=== PATIENT | female | born 1970 | race African-American/Black ===

== ENCOUNTER 2017-02-06 12:13 | Inpatient (IN) | payer BC ==
[~2017-02-06] VITALS: Ht 160 cm; Wt 86.5 kg
[2017-02-06 12:19] VITALS: Ht 160 cm; Wt 86.5 kg
[2017-02-06] MEDS ORDERED: SOD CHLORIDE 0.9% 500 ML IV STA (12:29)
[2017-02-06 12:58] LABS: ADD SCAN DIFF NO
[2017-02-06 13:04] LABS: ABNORMAL IP MESSAGE 1; HEMATOCRIT 25.7 % (37.0-47.0); MEAN CORPUSCULAR HEMOGLOBIN 16.6 pg (29.0-33.0); MEAN CORPUSCULAR HGB CONC 25.7 g/dl (32.0-37.0); MEAN CORPUSCULAR VOLUME 64.6 fl (82.0-101.0); MEAN PLATELET VOLUME 10.6 fl (7.4-10.4); PLATELET COUNT 334 10^3/UL (140-415); RED BLOOD COUNT 3.98 10^6/ul (4.20-5.40); RED CELL DISTRIBUTION WIDTH 22.5 % (11.5-14.5); RETICULOCYTE COUNT % 1.7 % (0.5-1.5); WHITE BLOOD COUNT 9.8 10^3/ul (4.8-10.8)
[2017-02-06 13:11] LABS: HEMOGLOBIN 6.6 g/dl (12.0-16.0)
[2017-02-06 13:17] LABS: POTASSIUM 3.7 mmol/L (3.5-5.1)
[2017-02-06 13:18] LABS: IRON 18 ug/dl (35-150)
[2017-02-06 13:19] LABS: CREATININE 0.89 mg/dl (0.44-1.00)
[2017-02-06 13:20] LABS: CALCIUM 9.3 mg/dl (8.4-10.2)
[2017-02-06 13:28] LABS: TOTAL IRON BINDING CAPACITY 435 ug/dl (241-421)
[2017-02-06] MEDS ORDERED: HYD25 PO (13:46)
[2017-02-06] MEDS ORDERED: CARV6.2579 PO (13:46)
[2017-02-06] MEDS ORDERED: VALS160T20 PO (13:47)
[2017-02-06 14:04] LABS: EOSINOPHILS # 0.1 10^3/ul (0.0-0.5); LYMPHOCYTES # 1.4 10^3/ul (0.8-2.9); MONOCYTE # 0.4 10^3/ul (0.3-0.9); NEUTROPHIL # 7.9 10^3/ul (1.6-7.5)
--- NOTE | 2017-02-06 14:15 | ERA ---
ER Documentation Chief Complaint Date/Time DATE: 02/06/17 TIME: 14:13 Chief Complaint was told to come to er due low hgb, asymtomatic HPI 46-year-old female who was told to come to the ER secondary to low hemoglobin. Patient is asymptomatic denies any palpitations lightheadedness chest pain or shortness of breath on exertion. Denies any other current complaints. Patient does have heavy periods. ROS All systems reviewed and are negative except as per history of present illness. Medications Home Meds Reported Medications Valsartan* (Diovan*) 160 Mg Tablet, 160 MG PO DAILY, TAB 02/06/17 Hydrochlorothiazide* (Hydrochlorothiazide*) 25 Mg Tab, 25 MG PO DAILY, #30 TAB 02/06/17 Carvedilol* (Carvedilol*) 6.25 Mg Tablet, 6.25 MG PO BID, #60 TAB 02/06/17 Allergies Allergies: Coded Allergies: No Known Allergy (Unverified , 02/06/17) Physical Exam Vitals Vital Signs Date Time Temp Pulse Resp B/P Pulse Ox O2 Delivery O2 Flow Rate FiO2 02/06/17 12:19 98.2 77 18 163/80 99 Physical Exam Const: [] Head: Atraumatic Eyes: Normal Conjunctiva ENT: Normal External Ears, Nose and Mouth. Neck: Full range of motion..~ No meningismus. Resp: Clear to auscultation bilaterally Cardio: Regular rate and rhythm, no murmurs Abd: Soft, non tender, non distended. Normal bowel sounds Skin: No petechiae or rashes Back: No midline or flank tenderness Ext: No cyanosis, or edema Neur: Awake and alert Psych: Normal Mood and Affect Result Diagram: 02/06/17 1235 02/06/17 1235 Results 24 hrs Laboratory Tests Test 02/06/17 12:35 White Blood Count 9.810^3/ul Red Blood Count 3.9810^6/ul Hemoglobin 6.6g/dl Hematocrit 25.7% Mean Corpuscular Volume 64.6fl Mean Corpuscular Hemoglobin 16.6pg Mean Corpuscular Hemoglobin Concent 25.7g/dl Red Cell Distribution Width 22.5% Platelet Count 74311^3/UL Mean Platelet Volume 10.6fl Neutrophils % 81.0% Lymphocytes % 14.0% Monocytes % 4.0% Eosinophils % 1.0% Neutrophils # 7.910^3/ul Lymphocytes # 1.410^3/ul Monocytes # 0.410^3/ul Eosinophils # 0.110^3/ul Absolute Reticulocyte Count 0.069X10^6 Percent Reticulocyte Count 1.7% Sodium Level 143mmol/L Potassium Level 3.7mmol/L Chloride Level 111mmol/L Carbon Dioxide Level 27mmol/L Anion Gap 9 Blood Urea Nitrogen 9mg/dl Creatinine 0.89mg/dl Glucose Level 93mg/dl Calcium Level 9.3mg/dl Iron Level 18ug/dl Total Iron Binding Capacity 435ug/dl Percent Iron Saturation 4% SAT Current Medications Medications (Trade) Dose Ordered Sig/Julio Route PRN Reason Start Time Stop Time Status Last Admin Dose Admin Sodium Chloride (NS) 500 ml @ 500 mls/hr Q1H STAT IV 02/06/17 12:29 02/06/17 13:28 DC 02/06/17 12:51 Procedures/MDM Medical decision-makin-year-old female with severe anemia. Admitted for transfusion. Hospitalist made aware. Departure Diagnosis: Primary Impression: Anemia Qualified Code: D50.9 - Iron deficiency anemia, unspecified iron deficiency anemia type Condition: Serious RACHEL MC February 06, 2017 14:15
[2017-02-06 14:20] VITALS: BP 177/77; RESP 18
--- NOTE | 2017-02-06 16:26 | HP ---
Date/Time of Note Date/Time of Note DATE: 02/06/17 TIME: 16:17 Assessment/Plan VTE Prophylaxis VTE Prophylaxis Intervention: SCD's Assessment/Plan Assessment/Plan 46 yo F with pmhx htn admitted for incidentally discovered significant microcytic anemia. Etio unclear. Labs with evidence of ELPIDIO as well. #Iron deficiency anemia -GI consult for EGD, possible CScope -defer casino supervisor consult as pt does not report heavy periods/vaginal bleeding -hgb electropheresis to eval for thalassemia -hold off on starting iron pending GI eval (do not want to confound testing) -check FOBT -1 unit pRBCs ordered by the ER. Will recheck CBC post transfusion -check TSH though less likely thyroid mediated process #HTN: cont home meds FEN: general diet till mn then NPO for possible GI eval HPI/ROS Admit Date/Time Admit Date/Time February 06, 2017 at 13:17 Hx of Present Illness 46 yo F with pmhx HTN presents after unexpected finding of anemia on "routine labs" with PCP. Pt seen by PCP 4 days ago to establish care/[facility] for HTN. Labs returned today, notable for hgb in the 6s and pt was advised to present to the ED for further eval. Pt denies any dark stool, blood in stools, hematemesis, easy bruising, or heavy periods. Pt denies fatigue but her daughter told her she seemed more tired than usual lately. Pt denies recent NSAID use. Takes APAP PRN headaches. ROS 10 point ROS negative except as per HPI no fevers/chills no visual changes no cp/SOB no weight changes no night sweats no rashes no nausea/vomitting no constipation or diarrhea no numbness/tingling/weakness PMH/Family/Social Past Medical History Medical History: hypertension Past Surgical History h/o C Section Family History Significant Family History: no pertinent family hx (no family hx bleeding disorder) Social History lives with her 2 daughters, in school for sociology Smoking Status: Former smoker Exam/Review of Systems Vital Signs Vitals Vital Signs Date Time Temp Pulse Resp B/P Pulse Ox O2 Delivery O2 Flow Rate FiO2 02/06/17 14:20 97.5 18 177/77 100 Room Air 02/06/17 13:42 72 Exam Exam nad, pleasant EOMI MMM rrr no mrg lungs clear abd soft no le edema no rashes responds to questions appropriately moves exts freely Labs Result Diagram: 02/06/17 1235 02/06/17 1235 Medications Medications Current Medications Carvedilol (Coreg) 6.25 mg BID PO ; Start 02/06/17 at 21:00; Status UNV Hydrochlorothiazide (Hydrochlorothiazide) 25 mg DAILY PO ; Start 02/07/17 at 09: 00; Status UNV Valsartan (Diovan) 160 mg DAILY PO ; Start 02/07/17 at 09:00; Status UNV RICHARD MACK MD February 06, 2017 16:26
[2017-02-06] MEDS: ACETAMINOPHEN 325 MG TAB PO PRN (16:58)
--- NOTE | 2017-02-06 17:26 | CONS ---
Date/Time of Note Date/Time of Note DATE: 02/06/17 TIME: 17:19 Assessment/Plan Assessment/Plan Additional Assessment/Plan Assessment * Anemia UGI bleed vs Lower GI bleed vs iron deficiency Plan * Transfuse blood as ordered * EGD risks and benefit explained to the patient ,but will thik it over * Will placed her on regular diet tonight but NPO post breakfast Consultation Date/Type/Reason Admit Date/Time February 06, 2017 at 13:17 Date of Consultation: February 06, 2017 Type of Consultation: Gastroenterology Reason for Consultation anemia Referring Provider: RICHARD MACK MD Hx of Present Illness 46 year old female sent by her PCP because of hemoglobin 6.6.Patient denies any chest pain,body malaise ,shortness of breath ,hematemesis,nor hematochezia.Patient denies any pertinent past medical history.Hemoglobin at er is 6.6 and presently receiving blood transfusion Constitutional: improved, no complaints Eyes: no complaints ENT: no complaints Respiratory: no complaints Cardiovascular: no complaints Gastrointestinal: no complaints Genitourinary: no complaints Musculoskeletal: no complaints Skin: no complaints Neurologic: no complaints Endocrine: no complaints Lymphatic: no complaints Psychological: nl mood/affect, no complaints Immunologic: no complaints Past Medical History Medical History: hypertension Past Surgical History Past Surgical Hx: no surgical history Family History Significant Family History: no pertinent family hx Social History Smoking Status: Former smoker Exam/Review of Systems Vital Signs Vitals Vital Signs Date Time Temp Pulse Resp B/P Pulse Ox O2 Delivery O2 Flow Rate FiO2 02/06/17 14:20 97.5 18 177/77 100 Room Air 02/06/17 13:42 72 Exam Constitutional: alert, oriented, well developed Psych: nl mood/affect, no complaints Head: atraumatic, normocephalic Eyes: EOMI, PERRL, nl conjunctiva, nl lids, nl sclera ENMT: nl external ears & nose, nl lips & teeth, nl nasal mucosa & septum Neck: non-tender, supple Respiratory: clear to auscultation, normal air movement Cardiovascular: nl pulses, regular rate and rhythm Gastrointestinal: nl liver, spleen, non-tender, soft Musculoskeletal: nl extremities to inspection, nl gait and stance Extremities: normal pulses Neurological: FACULTY SUPPORT COORDINATOR II-XII intact, nl mental status, nl speech, nl strength Skin: nl turgor, No rash or lesions Lymph: nl lymph nodes Results Result Diagram: 02/06/17 1235 02/06/17 1235 Results 24 hrs Laboratory Tests Test 02/06/17 12:35 White Blood Count 9.8 Red Blood Count 3.98 L Hemoglobin 6.6 *L Hematocrit 25.7 L Mean Corpuscular Volume 64.6 L Mean Corpuscular Hemoglobin 16.6 L Mean Corpuscular Hemoglobin Concent 25.7 L Red Cell Distribution Width 22.5 H Platelet Count 334 Mean Platelet Volume 10.6 H Neutrophils % 81.0 H Lymphocytes % 14.0 L Monocytes % 4.0 Eosinophils % 1.0 Neutrophils # 7.9 H Lymphocytes # 1.4 Monocytes # 0.4 Eosinophils # 0.1 Absolute Reticulocyte Count 0.069 Percent Reticulocyte Count 1.7 H Sodium Level 143 Potassium Level 3.7 Chloride Level 111 H Carbon Dioxide Level 27 Anion Gap 9 Blood Urea Nitrogen 9 Creatinine 0.89 Glucose Level 93 Calcium Level 9.3 Iron Level 18 L Total Iron Binding Capacity 435 H Percent Iron Saturation 4 L Thyroid Stimulating Hormone (TSH) 2.470 Medications Medications Current Medications Carvedilol (Coreg) 6.25 mg BID PO ; Start 02/06/17 at 21:00 Hydrochlorothiazide (Hydrochlorothiazide) 25 mg DAILY PO ; Start 02/07/17 at 09: 00 Valsartan (Diovan) 160 mg DAILY PO ; Start 02/07/17 at 09:00 Acetaminophen (Tylenol Tab) 325 mg Q6H PRN PO PAIN AND OR ELEVATED TEMP Last administered on 02/06/17t 16:58; Admin Dose 325 MG; Start 02/06/17 at 17:00 ROBERTO VORA MD February 06, 2017 17:25
[2017-02-06 20:45] VITALS: BP 164/86; PULSE 66
[2017-02-06 21:00] VITALS: BP 163/84; RESP 18
[2017-02-06 21:40] VITALS: BP 151/82; PULSE 68
[2017-02-07] MEDS: ACETAMINOPHEN 325 MG TAB PO PRN ×2 (04:21→20:50)
[2017-02-07 06:48] LABS: ADD SCAN DIFF NO
[2017-02-07 06:51] LABS: ABNORMAL IP MESSAGE 1; BASOPHILS % 0.5 % (0.0-2.0); EOSINOPHILS # 0.4 10^3/ul (0.0-0.5); EOSINOPHILS % 4.5 % (0.0-7.0); HEMATOCRIT 27.3 % (37.0-47.0); HEMOGLOBIN 7.6 g/dl (12.0-16.0); LYMPHOCYTES # 1.7 10^3/ul (0.8-2.9); LYMPHOCYTES % 21.6 % (15.0-51.0); MEAN CORPUSCULAR HEMOGLOBIN 18.6 pg (29.0-33.0); MEAN CORPUSCULAR HGB CONC 27.8 g/dl (32.0-37.0); MEAN CORPUSCULAR VOLUME 66.7 fl (82.0-101.0); MONOCYTE # 0.6 10^3/ul (0.3-0.9); MONOCYTES % 7.9 % (0.0-11.0); NEUTROPHILS % 65.1 % (39.0-77.0); PLATELET COUNT 323 10^3/UL (140-415); RED BLOOD COUNT 4.09 10^6/ul (4.20-5.40); RED CELL DISTRIBUTION WIDTH 24.7 % (11.5-14.5); WHITE BLOOD COUNT 7.7 10^3/ul (4.8-10.8)
[2017-02-07 07:20] VITALS: BP 134/76; RESP 18
[2017-02-07] MEDS: HYDROCHLOROTHIAZIDE 25 MG TAB PO SCH (08:12)
[2017-02-07] MEDS: VALSARTAN 160 MG TAB PO SCH (08:12)
--- NOTE | 2017-02-07 13:56 | PN ---
Date/Time of Note Date/Time of Note DATE: 02/07/17 TIME: 13:54 Assessment/Plan VTE Prophylaxis VTE Prophylaxis Intervention: SCD's Lines/Catheters IV [facility] Saline Lock Urinary Cath still in place: No Assessment/Plan Assessment/Plan 46 yo F admitted for incidental finding of ELPIDIO. Etio unclear PLAN EGD tomorrow, RN to let GI know pt amenable CBC in AM (appropriate bump after 1 unit today) hgb electrophesis in process defer starting TID iron pending endoscopic eval svitlana SCDs NPO at mn Subjective 24 Hr Interval Summary Free Text/Dictation pt ambivalent about EGD though is now amenable Exam/Review of Systems Vital Signs Vitals Vital Signs Date Time Temp Pulse Resp B/P Pulse Ox O2 Delivery O2 Flow Rate FiO2 02/07/17 07:20 98.2 62 18 134/76 100 02/06/17 14:20 Room Air Intake and Output 02/06/17 02/06/17 02/07/17 15:00 23:00 07:00 Intake Total 750 ml 500 ml Balance 750 ml 500 ml Exam nad resp nonlabored responds to questions approriately no le edema no rashes Results Result Diagram: 02/07/17 0510 02/06/17 1235 Results 24 hrs Laboratory Tests Test 02/07/17 05:10 02/07/17 06:24 White Blood Count 7.7 # Red Blood Count 4.09 L Hemoglobin 7.6 L Hematocrit 27.3 L Mean Corpuscular Volume 66.7 L Mean Corpuscular Hemoglobin 18.6 L Mean Corpuscular Hemoglobin Concent 27.8 L Red Cell Distribution Width 24.7 H Platelet Count 323 Mean Platelet Volume Neutrophils % 65.1 Lymphocytes % 21.6 Monocytes % 7.9 Eosinophils % 4.5 Basophils % 0.5 Nucleated Red Blood Cells % 0.0 Neutrophils # 5.0 Lymphocytes # 1.7 Monocytes # 0.6 Eosinophils # 0.4 Basophils # 0.0 Nucleated Red Blood Cells # 0.0 Lab Scanned Report BLOOD TRANSFUSION Medications Medications Current Medications Carvedilol (Coreg) 6.25 mg BID PO Last administered on 02/07/17 08:12; Admin Dose 6.25 MG; Start 02/06/17 at 21:00 Hydrochlorothiazide (Hydrochlorothiazide) 25 mg DAILY PO Last administered on 08:12; Admin Dose 25 MG; Start 02/07/17 at 09:00 Valsartan (Diovan) 160 mg DAILY PO Last administered on 02/07/17 08:12; Admin Dose 160 MG; Start 02/07/17 at 09:00 Acetaminophen (Tylenol Tab) 325 mg Q6H PRN PO PAIN AND OR ELEVATED TEMP Last administered on 02/07/17 04:21; Admin Dose 325 MG; Start 02/06/17 at 17:00 RICHARD MACK MD February 07, 2017 13:56
--- NOTE | 2017-02-07 14:22 | PN ---
Date/Time of Note Date/Time of Note DATE: 02/07/17 TIME: 14:19 Assessment/Plan VTE Prophylaxis VTE Prophylaxis Intervention: ambulation, SCD's Lines/Catheters IV [facility] Saline Lock Urinary Cath still in place: No Assessment/Plan Assessment/Plan Assessment * Anemia UGI bleed vs Lower GI bleed vs iron deficiency Plan * Transfuse blood as ordered * EGD risks and benefit explained to the patient ,but will think it over Subjective 24 Hr Interval Summary Free Text/Dictation * Course reviewed with RN * Patient seen and examined * Initially refused endoscopy later agreed will try to reschedule * Anemia controlled Exam/Review of Systems Vital Signs Vitals Vital Signs Date Time Temp Pulse Resp B/P Pulse Ox O2 Delivery O2 Flow Rate FiO2 02/07/17 07:20 98.2 62 18 134/76 100 02/06/17 14:20 Room Air Intake and Output 02/06/17 02/06/17 02/07/17 15:00 23:00 07:00 Intake Total 750 ml 500 ml Balance 750 ml 500 ml Exam Constitutional: alert Neck: non-tender, supple Respiratory: clear to auscultation, normal air movement Cardiovascular: nl pulses, regular rate and rhythm Gastrointestinal: non-tender, soft Musculoskeletal: nl extremities to inspection Results Result Diagram: 02/07/17 0510 02/06/17 1235 Results 24 hrs Laboratory Tests Test 02/07/17 05:10 02/07/17 06:24 White Blood Count 7.7 # Red Blood Count 4.09 L Hemoglobin 7.6 L Hematocrit 27.3 L Mean Corpuscular Volume 66.7 L Mean Corpuscular Hemoglobin 18.6 L Mean Corpuscular Hemoglobin Concent 27.8 L Red Cell Distribution Width 24.7 H Platelet Count 323 Mean Platelet Volume Neutrophils % 65.1 Lymphocytes % 21.6 Monocytes % 7.9 Eosinophils % 4.5 Basophils % 0.5 Nucleated Red Blood Cells % 0.0 Neutrophils # 5.0 Lymphocytes # 1.7 Monocytes # 0.6 Eosinophils # 0.4 Basophils # 0.0 Nucleated Red Blood Cells # 0.0 Lab Scanned Report BLOOD TRANSFUSION Medications Medications Current Medications Carvedilol (Coreg) 6.25 mg BID PO Last administered on 02/07/17t 08:12; Admin Dose 6.25 MG; Start 02/06/17 at 21:00 Hydrochlorothiazide (Hydrochlorothiazide) 25 mg DAILY PO Last administered on 08:12; Admin Dose 25 MG; Start 02/07/17 at 09:00 Valsartan (Diovan) 160 mg DAILY PO Last administered on 02/07/17 08:12; Admin Dose 160 MG; Start 02/07/17 at 09:00 Acetaminophen (Tylenol Tab) 325 mg Q6H PRN PO PAIN AND OR ELEVATED TEMP Last administered on 02/07/17 04:21; Admin Dose 325 MG; Start 02/06/17 at 17:00 ROBERTO VORA MD February 07, 2017 14:22
[2017-02-07 20:00] VITALS: BP 138/80; RESP 19
[2017-02-08] VITALS (14 sets, daily range): BP systolic 119–173; BP diastolic 62–95; PULSE 59–81; RESP 17–30
[2017-02-08 01:59] LABS: HEMOGLOBIN 6.7 g/dL (11.7-15.5); MCH 16.5 pg (27.0-33.0); MCV 66.5 fL (80.0-100.0); RED BLOOD CELL COUNT 4.06 Million/uL (3.80-5.10)
[2017-02-08 06:15] LABS: ADD SCAN DIFF NO
[2017-02-08 06:28] LABS: ABNORMAL IP MESSAGE 1; BASOPHILS % 0.6 % (0.0-2.0); EOSINOPHILS # 0.3 10^3/ul (0.0-0.5); EOSINOPHILS % 4.8 % (0.0-7.0); HEMATOCRIT 27.4 % (37.0-47.0); HEMOGLOBIN 7.7 g/dl (12.0-16.0); LYMPHOCYTES # 1.5 10^3/ul (0.8-2.9); LYMPHOCYTES % 21.1 % (15.0-51.0); MEAN CORPUSCULAR HEMOGLOBIN 19.1 pg (29.0-33.0); MEAN CORPUSCULAR HGB CONC 28.1 g/dl (32.0-37.0); MEAN CORPUSCULAR VOLUME 67.8 fl (82.0-101.0); MEAN PLATELET VOLUME 10.5 fl (7.4-10.4); MONOCYTE # 0.6 10^3/ul (0.3-0.9); MONOCYTES % 7.9 % (0.0-11.0); NEUTROPHIL # 4.5 10^3/ul (1.6-7.5); NEUTROPHILS % 65.3 % (39.0-77.0); PLATELET COUNT 344 10^3/UL (140-415); RED BLOOD COUNT 4.04 10^6/ul (4.20-5.40); RED CELL DISTRIBUTION WIDTH 24.8 % (11.5-14.5); WHITE BLOOD COUNT 6.9 10^3/ul (4.8-10.8)
[2017-02-08] MEDS: VALSARTAN 160 MG TAB PO SCH ×2 (09:00→15:35)
[2017-02-08] MEDS: HYDROCHLOROTHIAZIDE 25 MG TAB PO SCH ×2 (09:00→15:35)
[2017-02-08] MEDS ORDERED: SOD CHLORIDE 0.9% 250 ML IV* ONE (11:59)
[2017-02-08] MEDS ORDERED: EPHEDrine SULFATE 50 MG/5 ML SYG IV PRN (13:30)
[2017-02-08] MEDS ORDERED: hydrALAzine 20 MG INJ IV PRN (13:30)
[2017-02-08] MEDS ORDERED: OXYCODONE/ACETAMINOPHEN (5/325) TAB PO PRN ×2 (13:30)
[2017-02-08] MEDS ORDERED: ONDANSETRON 4 MG INJ IV PRN (13:30)
[2017-02-08] MEDS ORDERED: morphine (1 MG/ML) 10ML SYRINGE IV PRN ×3 (13:30)
[2017-02-08] MEDS ORDERED: METOCLOPRAMIDE 10 MG INJ IV PRN (13:30)
[2017-02-08] MEDS ORDERED: LABETALOL HCL 20MG INJ IV PRN (13:30)
[2017-02-08] MEDS ORDERED: FENTAnyl 50 MCG/ML VIAL ONE (14:02)
[2017-02-08] MEDS ORDERED: LIDOCAINE 2% (SDV) 5 ML INJ ONE (14:02)
[2017-02-08] MEDS ORDERED: PROPOFOL 20 ML ONE (14:02)
--- NOTE | 2017-02-08 16:30 | PN ---
Date/Time of Note Date/Time of Note DATE: 02/08/17 TIME: 16:26 Assessment/Plan VTE Prophylaxis VTE Prophylaxis Intervention: SCD's Lines/Catheters IV Catheter Type (from Nrs): Peripheral IV Urinary Cath still in place: No Assessment/Plan Assessment/Plan 1. Severe sympatomatic anemia 2. severe Iron deficienyc anemia rule out Upper GI bleeding vs Lower GI bleeding 3. Hypertension Plan: S/p PRBC transfusion yesterday, still Hb 7.7- will give another 1 unit PRBC transfusion today Plan for EGD today SCD for DVT prophylaxis Protonix for GI prophylaxis Subjective 24 Hr Interval Summary Free Text/Dictation s/p PRBC Hb 7.7, Bp stable, afebrile Exam/Review of Systems Vital Signs Vitals Vital Signs Date Time Temp Pulse Resp B/P Pulse Ox O2 Delivery O2 Flow Rate FiO2 02/08/17 14:49 70 30 135/74 99 Room Air 02/08/17 14:26 98.0 Intake and Output 02/07/17 02/07/17 02/08/17 15:00 23:00 07:00 Intake Total 800 ml 350 ml Balance 800 ml 350 ml Exam Constitutional: alert, oriented, well developed Respiratory: clear to auscultation, normal air movement Cardiovascular: nl pulses, regular rate and rhythm Gastrointestinal: nl liver, spleen, non-tender, soft Musculoskeletal: nl extremities to inspection, nl gait and stance Extremities: normal pulses Neurological: KINDERGARTEN INSTRUCTIONAL ASSISTANT II-XII intact, nl mental status, nl speech, nl strength Results Result Diagram: 02/08/17 0450 02/06/17 1235 Results 24 hrs Laboratory Tests Test 02/08/17 04:50 White Blood Count 6.9 Red Blood Count 4.04 L Hemoglobin 7.7 L Hematocrit 27.4 L Mean Corpuscular Volume 67.8 L Mean Corpuscular Hemoglobin 19.1 L Mean Corpuscular Hemoglobin Concent 28.1 L Red Cell Distribution Width 24.8 H Platelet Count 344 Mean Platelet Volume 10.5 H Neutrophils % 65.3 Lymphocytes % 21.1 Monocytes % 7.9 Eosinophils % 4.8 Basophils % 0.6 Nucleated Red Blood Cells % 0.0 Neutrophils # 4.5 Lymphocytes # 1.5 Monocytes # 0.6 Eosinophils # 0.3 Basophils # 0.0 Nucleated Red Blood Cells # 0.0 Medications Medications Current Medications Carvedilol (Coreg) 6.25 mg BID PO Last administered on 02/08/17 09:53; Admin Dose 6.25 MG; Start 02/06/17 at 21:00 Hydrochlorothiazide (Hydrochlorothiazide) 25 mg DAILY PO Last administered on 15:35; Admin Dose 25 MG; Start 02/07/17 at 09:00 Valsartan (Diovan) 160 mg DAILY PO Last administered on 02/08/17 15:35; Admin Dose 160 MG; Start 02/07/17 at 09:00 Acetaminophen (Tylenol Tab) 325 mg Q6H PRN PO PAIN AND OR ELEVATED TEMP Last administered on 02/07/17 20:50; Admin Dose 325 MG; Start 02/06/17 at 17:00 KIT MCKEON MD Feb 08, 2017 16:30
[2017-02-08] MEDS: ACETAMINOPHEN 325 MG TAB PO PRN (19:06)
[2017-02-08] MEDS ORDERED: AL HYDROX/MG HYDROX/SIMETH 30 ML CUP PO ONE (21:00)
[2017-02-08] MEDS: PANTOPRAZOLE (EC) 40 MG TAB PO SCH (21:13)
[2017-02-09 00:15] VITALS: BP 120/64; PULSE 64; RESP 18
[2017-02-09 01:15] VITALS: BP 110/62; PULSE 60; RESP 18
[2017-02-09] MEDS: PANTOPRAZOLE (EC) 40 MG TAB PO SCH (05:47)
[2017-02-09 07:30] LABS: ADD SCAN DIFF NO
[2017-02-09 07:36] LABS: ABNORMAL IP MESSAGE 1; BASOPHIL # 0.1 10^3/ul (0.0-0.1); BASOPHILS % 0.7 % (0.0-2.0); EOSINOPHILS # 0.3 10^3/ul (0.0-0.5); EOSINOPHILS % 3.9 % (0.0-7.0); HEMATOCRIT 31.6 % (37.0-47.0); HEMOGLOBIN 8.9 g/dl (12.0-16.0); LYMPHOCYTES # 1.5 10^3/ul (0.8-2.9); LYMPHOCYTES % 19.9 % (15.0-51.0); MEAN CORPUSCULAR HEMOGLOBIN 19.9 pg (29.0-33.0); MEAN CORPUSCULAR HGB CONC 28.2 g/dl (32.0-37.0); MEAN CORPUSCULAR VOLUME 70.5 fl (82.0-101.0); MEAN PLATELET VOLUME 10.7 fl (7.4-10.4); MONOCYTE # 0.6 10^3/ul (0.3-0.9); MONOCYTES % 7.6 % (0.0-11.0); NEUTROPHIL # 5.1 10^3/ul (1.6-7.5); NEUTROPHILS % 67.6 % (39.0-77.0); PLATELET COUNT 381 10^3/UL (140-415); RED BLOOD COUNT 4.48 10^6/ul (4.20-5.40); RED CELL DISTRIBUTION WIDTH 26.3 % (11.5-14.5); WHITE BLOOD COUNT 7.5 10^3/ul (4.8-10.8)
[2017-02-09 07:45] VITALS: BP 134/63; RESP 18
[2017-02-09 08:09] LABS: ALBUMIN 4.4 g/dl (3.3-4.9); ALBUMIN/GLOBULIN RATIO 1.22; BILIRUBIN,INDIRECT 0.2 mg/dl (0-1.1); BILIRUBIN,TOTAL 0.2 mg/dl (0.2-1.3); CALCIUM 9.3 mg/dl (8.4-10.2); CREATININE 0.85 mg/dl (0.44-1.00); POTASSIUM 4.1 mmol/L (3.5-5.1)
[2017-02-09] MEDS: HYDROCHLOROTHIAZIDE 25 MG TAB PO SCH (08:50)
[2017-02-09 10:20] LABS: INR 0.99; PARTIAL THROMBOPLASTIN TIME 26.9 Sec (25.0-35.0); PROTIME 13.1 Sec (12.2-14.2)
--- NOTE | 2017-02-09 11:26 | PDOCDIS ---
Discharge Instructions CONDITION Patient Condition: Good HOME CARE INSTRUCTIONS: Special Diet: regular ACTIVITY: Activity Restrictions: Slowly Increase Activity Rest between Activity Avoid heavy lifting Avoid Heavy Housework FOLLOW UP/APPOINTMENTS Appointments follow up with her own PMD through HMO Insurance in 1-2 week. follow up with GI as outpatietn in 1-2 week( she will need a referrral from her pMD to see GI physician as outpatient) KIT MCKEON MD Feb 09, 2017 11:26
[2017-02-09] MEDS ORDERED: DOCU-144 PO (11:27)
[2017-02-09] MEDS ORDERED: OMEP20CA16 PO (11:27)
[2017-02-09] MEDS ORDERED: FER325 PO (11:27)
[2017-02-09] MEDS: VALSARTAN 160 MG TAB PO SCH (12:34)
[2017-02-09 13:31] LABS: HEMOGLOBIN A 98.3 % (>96.0); HEMOGLOBIN A2 (QUANT) 1.7 % (1.8-3.5); HEMOGLOBIN F <1.0 % (<2.0)
--- NOTE | 2017-02-11 23:28 | DS ---
DATE OF ADMISSION: 02/06/2017 DATE OF DISCHARGE: 02/09/2017 FINAL DISCHARGE DIAGNOSES: 1. Severe symptomatic anemia, status post packed red blood cells transfusion. 2. Severe iron deficiency anemia, likely secondary to gastrointestinal bleeding. 3. Hypertension. CONSULTATIONS DONE DURING THIS HOSPITALIZATION: GI consult, Dr. Wells. PROCEDURES PERFORMED DURING THIS HOSPITALIZATION: The patient received 2 units of PRBC transfusion. HOSPITAL COURSE: This is a 46-year-old female who has a past medical history of hypertension, C-sec tion who presented with generalized weakness, fatigue, shortness of breath. She was admitted for se serenity symptomatic anemia. The patient had a severe iron deficiency anemia for which she had a GI con sultation done by Dr. Wells. The patient underwent EGD and had a biopsy done of her stomach, which shows ____ mucosa showing no significant histopathological abnormality. The patient received 2 uni ts of PRBC transfusion while being in the hospital. She slowly gradually improved back to her sara l baseline status. She was started on a p.o. diet. She was tolerating the diet very well. After g etting GI clearance, she is being discharged to home. DISPOSITION: To home. DISCHARGE CONDITION: Stable and improved compared to admission. DISCHARGE ACTIVITIES: As tolerated, slowly resume to the normal baseline activity. DISCHARGE DIET: Low fat, low sodium diet. DISCHARGE MEDICATIONS: As per medical reconciliation. 1. She is given prescriptions of Colace 100 mg p.o. b.i.d. p.r.n. constipation. 2. Ferrous sulfate 325 mg p.o. b.i.d. 3. Omeprazole 20 mg p.o. daily. DISCHARGE FOLLOWUP AND INSTRUCTIONS: 1. The patient is to follow up with her own primary care doctor through her HMO insurance 1 to 2 we eks after discharge. 2. The patient is to follow with GI physician, Dr. Wells, as outpatient in 1 to 2 weeks after disc harge. She will need a referral from her primary care doctor to see a GI physician as outpatient. Dictated By: KIT MCKEON MD, KP/NTS Conf#: [id number] DID#: [id number] CC: STERLING MULLEN MD;*EndCC*
== END 2017-02-09 13:50 | disposition home or self-care (01) | DRG 379 ==
LOC: E/R 12:13 → PP2 13:17
PROVIDERS: ADMIT Family Medicine; ATTEND Family Medicine
PROC: 30233N1 Transfusion of Nonautologous Red Blood Cells into Peripheral Vein, Percutaneous Approach (ICD-10-PCS; 2017-02-06)
PROC: 30233N1 Transfusion of Nonautologous Red Blood Cells into Peripheral Vein, Percutaneous Approach (ICD-10-PCS; 2017-02-08)
PROC: 0DB78ZX Excision of Stomach, Pylorus, Via Natural or Artificial Opening Endoscopic, Diagnostic (ICD-10-PCS; principal; 2017-02-08 12:30)
DX: K92.2 Gastrointestinal hemorrhage, unspecified (principal); I10 Essential (primary) hypertension; D50.9 Iron deficiency anemia, unspecified; K26.9 Duodenal ulcer, unspecified as acute or chronic, without hemorrhage or perforation; K29.70 Gastritis, unspecified, without bleeding; K44.9 Diaphragmatic hernia without obstruction or gangrene; K20.8 Other esophagitis; Z87.891 Personal history of nicotine dependence
CPT/HCPCS: 36430; 80048; 80053; 82270; 83020; 83540; 84443; 85025; 85045; 85610; 85730; 86850; 86900; 86901; 86920; 88305; 88312; J3010; J7040; P9016